=== PATIENT | female | born 1970 | race Caucasian/White ===

== ENCOUNTER 2018-05-09 16:10 | Emergency (ER) | payer BC, SELFPAY ==
[2018-05-09 16:10] VITALS: BP 143/93; PULSE 106; RESP 18; TEMP 36.2; O2SAT 100; BMI 33.3
[2018-05-09 17:30] VITALS: BP 143/93; PULSE 106; RESP 18; TEMP 36.2; O2SAT 96
[2018-05-09 17:54] LABS: Absolute Lymphocyte Count 3.21 X10^3/ul (0.83-4.51); Absolute Neutrophil Count 9.9 X10^3/uL (2.0-7.7); Basophil# 0.03 X10^3/uL; Basophil% 0.2 % (0-1); Eosinophil# 0.01 X10^3/uL; Eosinophils% 0.1 % (0-5); Hemoglobin 14.9 g/dl (12.0-15.0); Lymphocyte # 3.21 X10^3/ul (4.0); Lymphocyte % 22.4 % (19-41); Mean Corp Hgb Conc 33.1 g/gl (32-36); Mean Corpuscular Hgb 29.7 pg (27.0-32.0); Mean Corpuscular Volume 89.8 fL (81-99); Mean Platelet Vol. 10.4 fl (6.2-12.0); Monocyte# 1.14 X10^3/uL; POSITIVE COUNT NO; POSITIVE DIFFERENTIAL NO; POSITIVE MORPHOLOGY NO; Platelet Count 276 K/mm3 (150-450); RBC Distribution Width CV 12.6 % (11.6-14.6); RBC Distribution Width SD 40.8 fl (35.1-43.9); Red Blood Count 5.01 M/mm3 (4.2-5.4); White Blood Count 14.3 K/mm3 (4.4-11.0)
[2018-05-09] MEDS: 0.9% Normal Saline 1,000 ML 1000 ML IV (17:54)
[2018-05-09 18:04] LABS: Anion Gap 10 (5-15); BUN 13 mg/dL (7-18); BUN/Creat Ratio 13.3 RATIO (10-20); Calcium,Total 9.5 mg/dL (8.5-10.1); Chloride 99 mmol/L (98-107); Creatinine, Serum 0.98 mg/dL (0.55-1.02); EST Glomerular Filtration Rate 65 mL/min (>60); Est Glom Filt Rate - Afr Amer 78 mL/min (>60); Estimated Creatinine Clearance 69.75 ml/min; Glucose 388 mg/dL (74-106); Sodium Level 135 mmol/L (136-145)
[2018-05-09 18:15] LABS: Mucous, Urine 0 SEEN /hpf (<or=2+); Red Blood Cells-Urine 0 SEEN /hpf (0-5); White Blood Cells 0 SEEN /hpf (0-5)
[2018-05-09 18:17] LABS: Color, Urine Yellow (Yellow); Glucose, Dipstick 1000 mg/dl (Normal); Ketone-Dipstick Negative (Negative); Leukocyte Esterase-Dipstick Negative /ul (Negative); Nitrite-Dipstick Negative (Negative); Occult Blood-Urine Negative /ul (Negative); Protein-Dipstick Negative (Negative); Urine Bilirubin Dipstick Negative (Negative); Urine Clarity Clear (Clear); Urine Urobilinogen Normal (Normal); Urine pH 6.5 (5.0 - 8.0)
--- NOTE | 2018-05-09 18:32 | ED.VISSUMM ---
- ER Visit Summary Date of Service: 05/09/18 Chief Complaint: Elevated blood sugar History of Present Illness: The patient is a 47 F who presents with elevated blood sugar that became worse today. Patient was recently started on prednisone and Zithromax for bronchitis. Patient states her blood sugars at home were in the 600s. Patient states she called her phd intern who referred her to the emergency department. Patient admits to some polyuria and polydipsia. Patient denies any fevers or chills. Patient admits to some blurred vision. Physical Examination: Vital signs are stable. Patient is afebrile. Patient is in no acute distress. Oral mucosa is pink and moist. Neck is supple. Trachea is midline. There is no JVD noted. Heart was regular rate and rhythm. Lungs are clear and equal bilateral. Abdomen is soft. Bowel sounds are normal. There is no tenderness. There is no guarding noted. Skin is warm dry. Cranial nerves II through XII are intact. There are no focal motor or sensory deficits noted. The remaining physical exam is within normal limits. Test Results: Blood sugar here was elevated at 388. CBC was normal. Urinalysis was normal except for glucose in the urine. Ketones were negative. Emergency Department Course and Treatment: Patient was given IV fluids here. Patient was given a dose of Humalog here. Patient's blood sugar improved to 317. Patient was instructed to follow-up with her primary care physician in 2-3 days. Patient understood and was agreeable with the plan. All questions were answered. Disposition: Discharge home Impression: Hyperglycemia This note was generated with [employer] dictation software. It may contain incorrect words, spelling, and punctuation that were not noted in review of the chart prior to signing ED Disposition - Plan for ED Patient: Disposition: Home or Assisted Living Diagnosis: Hyperglycemia Instructions: ED Hyperglycemia Diabetic Referrals: Timmy Li MD [Primary Care Provider] -
--- NOTE | 2018-05-09 18:35 | ED.DCSUM_ITS ---
- ER Visit Summary Date of Service: 05/09/18 Chief Complaint: Elevated blood sugar History of Present Illness: The patient is a 47 F who presents with elevated blood sugar that became worse today. Patient was recently started on prednisone and Zithromax for bronchitis. Patient states her blood sugars at home were in the 600s. 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 Patient admits to some polyuria and polydipsia. Patient denies any fevers or chills. Patient admits to some blurred vision. Physical Examination: Vital signs are stable. Patient is afebrile. Patient is in no acute distress. Oral mucosa is pink and moist. Neck is supple. Trachea is midline. There is no JVD noted. Heart was regular rate and rhythm. Lungs are clear and equal bilateral. Abdomen is soft. Bowel sounds are normal. There is no tenderness. There is no guarding noted. Skin is warm dry. Cranial nerves II through XII are intact. There are no focal motor or sensory deficits noted. The remaining physical exam is within normal limits. Test Results: Blood sugar here was elevated at 388. CBC was normal. Urinalysis was normal except for glucose in the urine. Ketones were negative. Emergency Department Course and Treatment: Patient was given IV fluids here. Patient was given a dose of Humalog here. Patient's blood sugar improved to 317. Patient was instructed to follow-up with her primary care physician in 2-3 days. Patient understood and was agreeable with the plan. All questions were answered. Disposition: Discharge home Impression: Hyperglycemia This note was generated with [employer] dictation software. It may contain incorrect words, spelling, and punctuation that were not noted in review of the chart pr ior to signing ED Disposition - Plan for ED Patient: Disposition: Home or Assisted Living Diagnosis: Hyperglycemia Instructions: ED Hyperglycemia Diabetic Referrals: Timmy Li MD [Primary Care Provider] -
[2018-05-09 18:38] VITALS: TEMP 36.2; O2SAT 99
[2018-05-09 18:39] LABS: Bacteria RARE /hpf (None Seen); Squamous Epithelial Cells - UA 0-5 SEEN /hpf (5-10)
[2018-05-09] MEDS: Insulin Lispro 100 UNIT/ML INSULN.PEN 10 UNIT SC (18:44)
[2018-05-09 19:36] LABS: Bedside Glucose 314 mg/dL (70-110)
[2018-05-09 19:52] VITALS: RESP 18
== END 2018-05-09 20:06 | disposition home or self-care (01) ==
PROVIDERS: Emergency Provider Emergency Medicine; Family Provider Family Medicine; PCP Family Medicine
DX: E11.65 Type 2 diabetes mellitus with hyperglycemia (principal); I10 Essential (primary) hypertension; Z79.4 Long term (current) use of insulin; Z79.899 Other long term (current) drug therapy
CPT/HCPCS: 80048; 81001; 82009; 82962; 85025; 96360; 99283; J7030

== ENCOUNTER 2020-01-06 11:08 | Observation (INO) | payer BC, SELFPAY ==
[2020-01-06] VITALS (9 sets, daily range): BP systolic 113–181; BP diastolic 58–103; PULSE 69–90; RESP 12–19; TEMP 36.4–36.7; O2SAT 96–100; BMI 34.7; BMI 34.5; BMI 34.6
--- NOTE | 2020-01-06 11:11 | EKG12_ITS ---
Test Reason : Blood Pressure : / mmHG Vent. Rate : 083 BPM Atrial Rate : 083 BPM P-R Int : 132 ms QRS Dur : 072 ms QT Int : 362 ms P-R-T Axes : -25 032 043 degrees QTc Int : 425 ms Normal sinus rhythm Normal ECG Confirmed by KATHERINE GONZALEZ, SHUBHAM ([id number]), non linear editor RENATE VELOZ ([id number]) on 01/12/2020 11:48:08 AM Referred By: BRIANA Confirmed By:SHUBHAM MURPHY MD
[2020-01-06 11:35] LABS: Absolute Lymphocyte Count 3.13 X10^3/uL (0.83-4.51); Absolute Neutrophil Count 8.1 X10^3/uL (2.0-7.7); Basophil# 0.06 X10^3/uL; Basophil% 0.5 % (0-1); Eosinophil# 0.09 X10^3/uL; Eosinophils% 0.7 % (0-5); Hematocrit 44.8 % (37-47); Hemoglobin 14.9 g/dL (12.0-15.0); Lymphocyte # 3.13 X10^3/ul (4.0); Lymphocyte % 25.5 % (19-41); Mean Corp Hgb Conc 33.3 g/dL (32-36); Mean Corpuscular Hgb 30.1 pg (27.0-32.0); Mean Corpuscular Volume 90.5 fL (81-99); Mean Platelet Vol. 10.2 fl (6.2-12.0); Monocyte# 0.88 X10^3/uL; Monocyte% 7.2 % (0-10); NRBC Flagged by Analyzer 0 % (0-5); Neutrophil # 8.08 X10^3/uL (2.7-7.7); Neutrophil % 65.7 % (47-70); Platelet Count 298 K/mm3 (150-450); RBC Distribution Width CV 12.7 % (11.6-14.6); RBC Distribution Width SD 41.6 fl (35.1-43.9); Red Blood Count 4.95 M/mm3 (4.2-5.4); White Blood Count 12.3 K/mm3 (4.4-11.0)
--- NOTE | 2020-01-06 11:40 | RAD_ITS ---
STUDY: X-RAY CHEST REASON FOR EXAM: Female, 49 years old. CHEST PAIN SINCE YESTERDAY. TINGLING DOWN LEFT ARM WITH HEAVYNESS IN CHEST. TECHNIQUE: Single AP portable view of the chest. COMPARISON: 06/04/2014 FINDINGS: The lungs are clear and expanded. There is no demonstrated pleural abnormality. Normal size heart. Normal mediastinum and priyanka. Normal visualized pulmonary arteries. Normal visualized aortic arch and descending thoracic aorta. Normal visualized thoracic spine. Normal visualized ribs, clavicles, and shoulders. There is no demonstrated abnormality of the visualized soft tissue structures of the upper abdomen. RAD/Chest 1 View (Portable) IMPRESSION: Normal x-ray examination of the chest. Electronically Signed: Matt Stahl MD at 11:55 EDT Tel , Service support ,
--- NOTE | 2020-01-06 11:45 | ED.VIS.GEN ---
History of Present Illness Chief Complaint: Chest Pain Informant: Patient Narrative: 49-year-old female presenting with chest pain which is intermittent and feels like pressure. She says it comes and goes for a few minutes at a time. She has radiation into her left arm. She has associated dyspepsia as well. The episodes had been intermittent all day yesterday. Patient states she was supposed to come to the ER yesterday but did not. Today due to continuing episodes she presents for evaluation. Patient states she has a past medical history of hyperlipidemia, diabetes, hypertension. She denies cardiac history. Last stress test was 5 years ago. Patient does admit to history of provoked DVT after surgeries. She has no unprovoked DVTs. - Past Medical History (1) GERD (gastroesophageal reflux disease) Status: Chronic (2) Diabetes mellitus type 2 in obese Status: Chronic Comment: Pt currently using MDI. Discussed importance of notifying this office and [employer] with any/all pump issues. Will continue on injections at this time. Provided with a sliding scale of 1 for 15 points or 3 for 50 points. Counseled to decrease brekafast insulin with egg meal to 25 units to avoid low. Begin use of sliding scale as needed. Past Medical History - Allergies and Home Meds Allergies/Adverse Reactions: Allergies etodolac Allergy (Severe, Verified 01/06/20 11:08) Unknown lisinopril Allergy (Verified 01/06/20 11:08) Shortness of breath COUGH FEELS CANNOT BREATHE Past Medical History: - - Diabetes, hypertension, hyperlipidemia GERD, anxiety Surgical History: - - Hysterectomy cholecystectomy 2 left knee surgeries 2 left ankle surgery Lives: Spouse/ Significant Other Smoking Status: Never smoker Alcohol: None Drugs: None - Family History Paternal Family History: Family History (Last Reviewed 03/28/17 @ 13:00 by Kym Gao) Mother Asthma Diabetes Heart disease Hypertension High cholesterol Ovarian cancer Daughter Asthma Grandfather Cancer Grandmother Cancer Family History: Reports: No pertinent history Maternal Family History: Family History (Last Reviewed 03/28/17 @ 13:00 by Kym Gao) Mother Asthma Diabetes Heart disease Hypertension High cholesterol Ovarian cancer Daughter Asthma Grandfather Cancer Grandmother Cancer Family History: Reports: Cancer, Heart Disease Review of Systems General: Denies: Chills, Fever, Sweats Eyes: Denies: Visual changes - bilaterally, Diplopia ENT: Denies: Rhinorrhea, Sore throat Cardiovascular: Reports: Chest pain. Denies: Palpitations Respiratory: Denies: Dyspnea, Cough Gastrointestinal: Reports: Nausea, - - Dyspepsia Genitourinary: Denies: Dysuria, Hematuria Musculoskeletal: Denies: Back pain, Extremity Pain Skin: Denies: Rash, Wounds Neurological: Denies: Headache, Weakness, Numbness Physical Exam Vital Signs/Narrative: Vital Signs Temp Pulse Resp BP Pulse Ox 01/06/20 11:09 97.5 F L 90 16 181/58 H 100 Inital Vital Signs reviewed: Yes General: Obese, No Acute Distress Head: Normocephalic, Atraumatic Eyes: Perrl, EOMI ENT: Moist mucous membranes, No rhinorrhea Cardiovascular: Regular rate, Regular rhythm Respiratory: No distress, CTA bilaterally Abdomen: Soft, Nontender Extremities: Nontender, No edema Skin: Normal color, No rash. Negative for: Diaphoresis Neurological: Alert, Oriented x3, Cranial nerves II-XII grossly intact Psychological: Normal affect, Normal Mood Diagnostic/Tx/Re-eval Clinical Impression(s) from Imaging Studies Chest X-Ray 01/06/20 11:40 IMPRESSION: Normal x-ray examination of the chest. Electronically Signed: Matt Stahl MD at 11:55 EDT Tel , Service support , Chest CTA 01/06/20 12:15 IMPRESSION: Normal CTA chest examination, without a demonstrated pulmonary embolism or arterial dissection. Electronically Signed: Matt Stahl MD at 13:05 EDT Tel , Service support , Laboratory Data 01/06/20 01/06/20 01/06/20 11:30 11:30 11:30 WBC 12.3 H RBC 4.95 Hgb 14.9 Hct 44.8 MCV 90.5 MCH 30.1 MCHC 33.3 RDW Std Deviation 41.6 RDW Coeff of Tina 12.7 Plt Count 298 MPV 10.2 Immature Gran % (Auto) 0.400 Neut % (Auto) 65.7 Lymph % (Auto) 25.5 [place] % (Auto) 7.2 Eos % (Auto) 0.7 Baso % (Auto) 0.5 Absolute Neuts (auto) 8.1 H Absolute Lymphs (auto) 3.13 Nucleated RBC % 0 Sodium 139 Potassium 4.3 Chloride 106 Carbon Dioxide 29.0 Anion Gap 4 L BUN 13 Creatinine 1.00 Estim Creat Clear Calc 64.41 Est GFR (MDRD) Af Amer 76 Est GFR (MDRD) Non-Af 63 BUN/Creatinine Ratio 13.0 Glucose 286 H Calcium 9.0 Magnesium 1.9 Troponin I < 0.015 - Rhythm Strip Rhythm Strip: Sinus Rhythm Rate: 83 - EKG Initial EKG Interpretation: Sinus Rhythm, No Acute Injury Pattern - Medical Decision Making 49-year-old female with history of diabetes, hypertension, hyperlipidemia presenting with chest pain which is intermittent and radiating down the left arm. She has not had a stress test in several years. Her EKG is sinus rhythm without signs of ischemia. Troponin is negative. Other lab work is unremarkable. Her pain did improve with nitroglycerin but she did require a dose of morphine after this. Patient is amenable to being admitted to the hospital for further work-up. Impression: 1. Chest pain ED Disposition - Plan for ED Patient: Disposition: Acute Care Hospital [facility]
[2020-01-06 11:52] LABS: Anion Gap 4 (5-15); BUN 13 mg/dL (7-18); Chloride 106 mmol/L (98-107); EST Glomerular Filtration Rate 63 mL/min (>60); Est Glom Filt Rate - Afr Amer 76 mL/min (>60); Estimated Creatinine Clearance 64.41 ml/min; Glucose 286 mg/dL (74-106); Potassium 4.3 mmol/L (3.5-5.1); Sodium Level 139 mmol/L (136-145)
--- NOTE | 2020-01-06 12:15 | CT_ITS ---
STUDY: CTA CHEST REASON FOR EXAM: Female, 49 years old. CHEST PAIN SINCE YESTERDAY WITH TINGLING DOWN LEFT ARM. RADIATION DOSAGE (If Supplied By Facility): CTDIvol = ( 13.84 ) mGy, DLP = ( 482.19 ) mGycm TECHNIQUE: The examination was performed with the intravenous administration of IV 100mL Isovue-370. Post-processing of the angiographic images was performed, with multiplanar reformation and 3D reconstruction. Individualized dose optimization techniques were used for this CT. COMPARISON: Chest x-ray earlier today FINDINGS: Normal enhancement of the main pulmonary artery and right and left pulmonary arteries. Normal enhancement of the bilateral peripheral pulmonary arteries. There is no demonstrated pulmonary embolism. Normal thoracic aorta and visualized great vessels. There is no demonstrated aortic dissection. Normal heart and pericardium. Normal mediastinum. Normal hilar regions. Normal visualized trachea and bronchi. The lungs are well expanded. Normal pulmonary parenchyma. Normal pleura. Normal chest wall structures. Normal osseous structures. Normal visualized upper abdomen. CT/CTA Chest W/WO Contrast IMPRESSION: Normal CTA chest examination, without a demonstrated pulmonary embolism or arterial dissection. Electronically Signed: Matt Stahl MD at 13:05 EDT Tel , Service support ,
[2020-01-06] MEDS: Aspirin 81 MG TAB.CHEW 324 MG PO (12:33)
[2020-01-06] MEDS: Nitroglycerin SL (ED/IMG/CATH) 0.4 MG TABLET SUBLINGUAL (12:35)
--- NOTE | 2020-01-06 13:14 | HP.PCM_ITS ---
Problem List (1) Chest pain Status: Acute Qualifiers: Chest pain type: unspecified Qualified Code(s): R07.9 - Chest pain, unspecified (2) HTN (hypertension) Status: Chronic Qualifiers: Hypertension type: essential hypertension Qualified Code(s): I10 - Essential (primary) hypertension (3) HLD (hyperlipidemia) Status: Chronic Qualifiers: Hyperlipidemia type: unspecified Qualified Code(s): E78.5 - Hyperlipidemia, unspecified (4) Obesity (BMI 30.0-34.9) Status: Chronic (5) Anxiety and depression Status: Chronic (6) Diabetes mellitus, type II Status: Chronic Qualifiers: Diabetes mellitus occupational health coordinator insulin use: with occupational health coordinator use Diabetes mellitus complication status: with other specified complication Qualified Code(s): E11.69 - Type 2 diabetes mellitus with other specified complication; Z79.4 - senior care (current) use of insulin (7) GERD (gastroesophageal reflux disease) Status: Chronic Qualifiers: Esophagitis presence: esophagitis presence not specified Qualified Code(s): K21.9 - Gastro-esophageal reflux disease without esophagitis History of Present Illness Date of Admission: 01/06/20 Chief Complaint: Chest pain The patient is a 49 y/o F w/ PMHx: Anxiety and Depression, IBS, GERD, HTN, HLD, Diabetes mellitus type II, Chronic bronchitis who presents to the [facility] ED on 01/06/20 with onset 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 She did contact her PCP and requested NG but was referred to the ED. Her employer also encouraged her to leave and go to the ED but the patient declined at that time per her report. Work-up in the ED included 97.5, heart rate 90, BP initially 181/58 with improvement to 141/91 without regimen, respiratory rate 16, on a percent on room air, CBC with WBC 12.3, hemoglobin 14.9, platelet 290 with left shift, BMP unremarkable aside glucose 26, troponin less than 0.015, EKG with sinus rhythm with no acute evidence of ischemia, chest x-ray with no acute cardiopulmonary findings, CTPA with no demonstrated PE or arterial dissection. Patient with noted cardiac catheterization several years prior and last stress testing per patient report 5 years prior. In the ED patient administered normal saline, Zofran, morphine, nitroglycerin and aspirin therapy. Past Medical History Past Medical History (Chronic Problems): Chronic Problems (Last Reviewed 03/28/17 @ 13:00 by Kym Gao) HTN (hypertension) (Chronic) HLD (hyperlipidemia) (Chronic) Obesity (BMI 30.0-34.9) (Chronic) Anxiety and depression (Chronic) Diabetes mellitus, type II (Chronic) Diabetes mellitus type 2 in obese (Chronic) Pt currently using MDI. Discussed importance of notifying this office and [employer] with any/all pump issues. Will continue on injections at this time. Provided with a sliding scale of 1 for 15 points or 3 for 50 points. Counseled to decrease brekafast insulin with egg meal to 25 units to avoid low. Begin use of sliding scale as needed. Anxiety (Chronic) GERD (gastroesophageal reflux disease) (Chronic) Medical History: Medical History (Last Reviewed 03/28/17 @ 13:00 by Kym Gao) Anxiety F41.9 Asthma J45.909 Back problem M53.9 Bone fracture T14.8XXA Chronic bronchitis J42 Diabetes type 2, uncontrolled E11.65 GERD (gastroesophageal reflux disease) K21.9 H/O transfusion of whole blood Z92.89 Headache R51 Hyperlipidemia E78.5 IBS (irritable bowel syndrome) K58.9 UTI (urinary tract infection) N39.0 h/o ankle surgery HTN (hypertension) I10 Allergies etodolac Allergy (Severe, Verified 01/06/20 11:08) Unknown lisinopril Allergy (Verified 01/06/20 11:08) Shortness of breath COUGH FEELS CANNOT BREATHE Home Medications: Ambulatory Orders Medication Instructions Recorded ALPRAZolam [Xanax] 0.5 mg PO TID PRN PRN 01/23/13 Esomeprazole Mag Trihydrate 40 mg PO DAILY 06/04/14 [Nexium] Losartan Potassium [Cozaar] 25 mg PO DAILY 06/04/14 Surgical History: Surgical History (Last Reviewed 03/28/17 @ 13:00 by Kym Gao) H/O arthroscopy of left knee Z98.890 H/O tubal ligation Z98.51 H/O: Z98.891 History of tonsillectomy Z98.890, Z90.89 Hx of cholecystectomy Z98.890, Z90.49 S/P total abdominal hysterectomy Z90.710 Surgical History: - - Hysterectomy, cholecystectomy, 2 left knee arthroscopic surgeries, 2 right ankle surgeries, 5-6 left ankle surgeries, T+A, L Breast Bx. 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 Paternal Family History: Family History (Last Reviewed 03/28/17 @ 13:00 by Kym Gao) Mother Asthma Diabetes Heart disease Hypertension High cholesterol Ovarian cancer Daughter Asthma Grandfather Cancer Grandmother Cancer History Items: Heart Disease - Patient with history of OR, HD. Review of Systems Constitutional: Reports: Anorexia, Weakness, Fatigue. Denies: Chills, Fever, Malaise, Weight Change HEENT: Denies: Head Aches, Sinus Congestion, Sinus Drainage Cardiovascular: Reports: Chest Pain, Chest Pressure, Heaviness. Denies: Chest Tightness, Light Headedness, Palpitations, Syncope Respiratory: Reports: Shortness of Breath. Denies: Cough, Shortness of breath at rest, Shortness of breath upon exertion, Sputum production Gastrointestinal: Reports: Nausea. Denies: Abdominal Pain, Vomiting Genitourinary: Denies: Dysuria Musculoskeletal: Reports: Foot Pain. Denies: Joint Pain, Joint Tenderness Skin: Denies: Rash, Wounds Neurological: Denies: Numbness, Tingling, Focal weakness Psychiatric: Reports: Anxiety, Depression. Denies: Homicidal Ideations, Suicidal Ideations Hematologic/ Lymphatic: Denies: Easy Bruising, Easy Bleeding VTE Information - Inpt Only VTE Present on Admission: No VTE Mechan Device Prophylaxis: SCD's VTE Pharm Prophylaxis ordered?: Yes Subjective: Patient seated upright in the ED bed, anxious, notes chest pain better after NG, . Objective: Physical Examination: General: awake, alert, oriented x 3 and cooperative, seated upright in the ED bed, anxious, notes CP improving, . Skin: normal color, turgor, no icterus, cyanosis. HEENT: AT/NC, EOMI, PERRLA, MMM, no carotid bruits or JVD noted. Lungs: CTA bilaterally, moderate effort, moderate decrease BL bases, no rales, ronchi or wheezing. Heart: Regular rate and rhythm; no gallop, rub audible. Abdomen: soft, obese, NTTP, ND, normal BS, no HSM. Extremities: no cyanosis, clubbing, or edema, visible hair bilateral lower ex tremities, palpable peripheral pulses upper and lower extremities. Neurological: patient awake, alert, oriented x 3; cognitive function intact; pupils equally reactive to light and accomodation; cranial nerves II-XII grossly normal, moving all 4 extremities, no focal deficits, strength mildly to moderately global decreased given acute presentation. Psychiatric: affect appears anxious regarding presentation otherwise normal, no acute evidence of depressive feelings. - Physical Exam Vitals/I&O's: Vital Signs Temp Pulse Resp BP Pulse Ox 97.5 F L 86 12 141/91 H 99 01/06/20 11:09 01/06/20 12:44 01/06/20 12:44 01/06/20 12:44 01/06/20 12:44 Oxygen Delivery Method Room Air Weight: 215 lb Body Mass Index (BMI) 34.7 Finger Stick Blood Glucose 314 Laboratory Results 01/06/20 11:30: WBC 12.3 H, RBC 4.95, Hgb 14.9, Hct 44.8, MCV 90.5, MCH 30.1, MCHC 33.3, RDW Std Deviation 41.6, RDW Coeff of Tina 12.7, Plt Count 298, MPV 10.2, Immature Gran % (Auto) 0.400, Neut % (Auto) 65.7, Lymph % (Auto) 25.5, [place] % (Auto) 7.2, Eos % (Auto) 0.7, Baso % (Auto) 0.5, Absolute Neuts (auto) 8.1 H, Absolute Lymphs (auto) 3.13, Nucleated RBC % 0 01/06/20 11:30: Sodium 139, Potassium 4.3, Chloride 106, Carbon Dioxide 29.0, Anion Gap 4 L, BUN 13, Creatinine 1.00, Estim Creat Clear Calc 64.41, Est GFR (MDRD) Af Amer 76, Est GFR (MDRD) Non-Af 63, BUN/Creatinine Ratio 13.0, Glucose 286 H, Calcium 9.0, Troponin I < 0.015 Current Medications Iopamidol (Contrast Allergy Safety Check) 0 ml IV X1 MACKENZIE Assessment/Plan All Active Problems (Last Reviewed 03/28/17 @ 13:00 by Kym Gao) Chest pain (Acute) Hyperglycemia (Acute) The patient is a 49 y/o F w/ PMHx: Anxiety and Depression, IBS, GERD, HTN, HLD, Diabetes mellitus type II, Chronic bronchitis who presents to the [facility] ED on 01/06/20 with onset chest pain noted to have occurred at work while active, described as a sharp stabbing and pressure at the same time with intermittent radiation to her LUE described as heaviness, rated at its worse 8-9/10 in severity with associated nausea without emesis, dyspnea and diaphoresis noted to be constant throughout the day and into day of current presentation. 1. Chest Pain: EKG in ED with sinus rhythm with no acute evidence of ischemia, CXR w/ no acute cardiopulmonary findings and follow-up CTPA with no evidence of PE or arterial dissection, initial trop less than 0.015. Will admit to PCU, place on a monitored bed to assure no acute myocardial infarction with serial cardiac enzymes and EKGs. Patient is able to perform exercise thus will proceed with AM nuclear stress test if repeat enzymes and EKGs remain stable. FLP in AM. Mag requested. ASA, NG, morphine. 2. Anxiety and depression: We will continue patient home Xanax regimen and Cymbalta. 3. Diabetes mellitus type II with neuropathy: Hold oral home regimen, continue home insulin regimen, ADA diet, accu checks w/ ISS, continue gabapentin. 4. Hypertension: Continue home regimen including losartan, if necessary may consider addition of additional oral regimen to maintain appropriate BP. 5. Hyperlipidemia: Continue home statin regimen. AM FLP. 6. Obesity: Weight loss and lifestyle changes encouraged. 7. GERD: Continue patient home PPI. 8. DVT prophylaxis: SCDs, Lovenox. OBSV E&M: 50712 Initial observation care L3
[2020-01-06] MEDS: Ondansetron 4 MG/2 ML Vial IM (13:22)
[2020-01-06] MEDS: Morphine 4 MG/ML Syringe IV (13:22)
--- NOTE | 2020-01-06 14:26 | EKG12_ITS ---
Test Reason : Blood Pressure : / mmHG Vent. Rate : 075 BPM Atrial Rate : 075 BPM P-R Int : 140 ms QRS Dur : 076 ms QT Int : 398 ms P-R-T Axes : 026 023 041 degrees QTc Int : 444 ms Normal sinus rhythm Normal ECG When compared with ECG of 06-JAN-2020 11:23, MANUAL COMPARISON REQUIRED, DATA IS UNCONFIRMED Confirmed by ELLIE GONZALEZ, SKIP ([id number]), newspaper photo editor RENATE VELOZ ([id number]) on 01/07/2020 1:11:15 P M Referred By: DRE Confirmed By:RICK ARGUETA MD
[2020-01-06 14:58] LABS: Magnesium 1.9 mg/dL (1.6-2.6)
[2020-01-06] MEDS: 0.9% Normal Saline 1,000 ML 100 ML IV (15:24)
[2020-01-06] MEDS: oxyCODONE 5 MG Tablet PO ×2 (15:52→21:18)
[2020-01-06 17:00] LABS: Bedside Glucose 96 mg/dL (70-110)
[2020-01-06] MEDS: Morphine 2 MG/ML Syringe IV (18:20)
[2020-01-06] MEDS: Atorvastatin Calcium 40 MG Tablet PO (21:18)
[2020-01-06] MEDS: Pregabalin 75 MG Capsule 150 MG PO (21:18)
[2020-01-07] VITALS (8 sets, daily range): BP systolic 100–120; BP diastolic 67–79; PULSE 64–91; RESP 11–16; TEMP 36.7–36.8; O2SAT 90–100
[2020-01-07 00:51] LABS: Bedside Glucose 176 mg/dL (70-110)
[2020-01-07] MEDS: 0.9% Normal Saline 1,000 ML 100 ML IV (01:30)
[2020-01-07] MEDS: Losartan Potassium 25 MG Tablet PO (05:35)
[2020-01-07] MEDS: Aspirin E.C. 81 MG Tablet PO (05:35)
[2020-01-07] MEDS: Morphine 2 MG/ML Syringe IV (05:46)
[2020-01-07] MEDS: 0.9% Saline Lock 10 ML Syringe IV ×2 (05:46→10:58)
--- NOTE | 2020-01-07 05:55 | EKG12_ITS ---
Test Reason : AM EKG Blood Pressure : / mmHG Vent. Rate : 068 BPM Atrial Rate : 068 BPM P-R Int : 128 ms QRS Dur : 074 ms QT Int : 408 ms P-R-T Axes : 013 039 055 degrees QTc Int : 433 ms Normal sinus rhythm Normal ECG When compared with ECG of 06-JAN-2020 15:44, MANUAL COMPARISON REQUIRED, DATA IS UNCONFIRMED Confirmed by ELLIE GONZALEZ, SKIP ([id number]), loan expeditor RENATE VELOZ ([id number]) on 01/07/2020 1:18:06 P M Referred By: JOSUE Confirmed By:RICK ARGUETA MD
[2020-01-07 06:28] LABS: Absolute Lymphocyte Count 4.18 X10^3/uL (0.83-4.51); Basophil# 0.06 X10^3/uL; Basophil% 0.6 % (0-1); Eosinophil# 0.14 X10^3/uL; Eosinophils% 1.4 % (0-5); Hematocrit 43.2 % (37-47); Hemoglobin 13.5 g/dL (12.0-15.0); Lymphocyte # 4.18 X10^3/ul (4.0); Lymphocyte % 41.2 % (19-41); Mean Corp Hgb Conc 31.3 g/dL (32-36); Mean Corpuscular Hgb 29.5 pg (27.0-32.0); Mean Corpuscular Volume 94.3 fL (81-99); Mean Platelet Vol. 10.1 fl (6.2-12.0); Monocyte# 0.73 X10^3/uL; Monocyte% 7.2 % (0-10); NRBC Flagged by Analyzer 0 % (0-5); Neutrophil # 5.01 X10^3/uL (2.7-7.7); Neutrophil % 49.3 % (47-70); Platelet Count 257 K/mm3 (150-450); RBC Distribution Width SD 44.3 fl (35.1-43.9); Red Blood Count 4.58 M/mm3 (4.2-5.4); White Blood Count 10.2 K/mm3 (4.4-11.0)
[2020-01-07 06:59] LABS: ALB/GLOB Ratio 0.8 RATIO (0.9-2.4); AST(SGOT) 23 U/L (15-37); Alanine Aminotransfer ALT/SGPT 34 U/L (13-56); Albumin, Serum 2.9 g/dL (3.2-5.0); Alkaline Phosphatase 108 U/L (45-117); Anion Gap 4 (5-15); BUN 11 mg/dL (7-18); BUN/Creat Ratio 13.3 RATIO (10-20); Calcium,Total 8.2 mg/dL (8.5-10.1); Chloride 108 mmol/L (98-107); Cholesterol 155 mg/dL (200); Creatinine, Serum 0.83 mg/dL (0.55-1.02); EST Glomerular Filtration Rate 78 mL/min (>60); Est Glom Filt Rate - Afr Amer 94 mL/min (>60); Globulin 3.5 g/dL (2.2-4.2); Glucose 82 mg/dL (74-106); High Density Lipoprotein 40 mg/dL; Potassium 4.3 mmol/L (3.5-5.1); Protein, Total 6.4 g/dL (6.4-8.2); Sodium Level 141 mmol/L (136-145); Triglycerides 144 mg/dL; Very Low Density Lipoprotein 29 mg/dL (5-40)
[2020-01-07 07:00] LABS: Bedside Glucose 100 mg/dL (70-110)
[2020-01-07 07:16] LABS: Hemoglobin A1c 7.8 % (3.8-5.6)
[2020-01-07] MEDS: oxyCODONE 5 MG Tablet PO (10:58)
[2020-01-07] MEDS: Pregabalin 75 MG Capsule 150 MG PO (10:58)
[2020-01-07] MEDS: Pantoprazole Sodium 40 MG Tablet PO (10:58)
[2020-01-07] MEDS: proCHLORPERazine 10 MG/2 ML Vial 5 MG IV (10:58)
[2020-01-07] MEDS: Acetaminophen 325 MG Tablet 650 MG PO (10:59)
[2020-01-07 11:15] LABS: Bedside Glucose 151 mg/dL (70-110)
--- NOTE | 2020-01-07 12:53 | MRI_ITS ---
STUDY: MRI CERVICAL SPINE WITHOUT CONTRAST REASON FOR EXAM: Female, 49 years old. radiculopathy, chest pain, left hand numbness TECHNIQUE: Standardized fat and water weighted pulse sequences were obtained in the sagittal and axial planes. COMPARISON: None FINDINGS: Normal foramen magnum and brainstem-cervical cord junction. Normal craniovertebral junction. Normal anterior atlantoaxial articulation. Normal odontoid process. Normal cervical lordosis. Normal vertebral bodies and posterior osseous elements. C2-3: Normal endplates. Normal disc height, signal and morphology. Normal central canal and intervertebral neural foramina. C3-4: Normal endplates. Normal disc height, signal and morphology. Normal central canal and intervertebral neural foramina. C4-5: Normal endplates. Normal disc height, signal and morphology. Normal central canal and intervertebral neural foramina. C5-6: Normal endplates. Normal disc height, signal and morphology. Normal central canal and intervertebral neural foramina. C6-7: Normal endplates. Normal disc height, signal and morphology. Normal central canal and intervertebral neural foramina. C7-T1: Normal endplates. Normal disc height, signal and morphology. Normal central canal and intervertebral neural foramina. Normal cervical cord. Normal visualized soft tissue structures. MRI/Spine Cervical (Routine) IMPRESSION: Normal unenhanced MR examination of the cervical spine. Electronically Signed: Andreas Paniagua MD at 16:20 EDT , Service support ,
--- NOTE | 2020-01-07 16:10 | STRESSREP_ITS ---
Stress Test Report Date: 01/07/2020 Procedure: Pharmacologic stress nuclear imaging study Indications: Chest pain Consent: Per the patient Procedure: The patient underwent pharmacologic (Regadenoson) evaluation with a peak heart rate of 113 beats per minute (65%predicted maximal heart rate) and a peak blood pressure of 136/80 mmHg. The baseline ECG demonstrated normal sinus rhythm. EKG during lexiscan infusion revealed no significant ST changes. EKG post infusion revealed no significant ischemic changes [There were no cardiac dysrhythmias pretest, during pharmacologic infusion, or recovery]. Patient had chest heaviness with Lexiscan infusion which is likely a nonspecific response. The examination was discontinued secondary to completion of protocol. Impression: 1. Lexiscan stress test test is negative for Lexiscan infusion induced EKG changes of ischemia. 2. Lexiscan stress test test is positive for Lexiscan infusion induced chest heaviness which is likely nonspecific response. 3. Results of the nuclear portion of the test is as below Myocardial perfusion imaging study: Technique: The patient was injected with 14 millicuries of technetium 99m Cardiolite and subsequently rest SPECT Cardiolite nuclear imaging was obtained in the horizontal long, vertical long, and short axis views. The patient underwent pha rmacologic (Regadenoson) evaluation. Please see above for details. The patient was injected with 45 millicuries of technetium 99m Cardiolite and subsequently stress SPECT Cardiolite nuclear imaging was obtained in the horizontal long, vertical long, and short axis views. A gated Cardiolite study at peak stress was obtained. Interpretation: Rest and stress SPECT Cardiolite nuclear imaging status post realignment, normalization, and attenuation correction demonstrate mildly decreased radioisotope uptake in the inferior wall prior to attenuation correction on both the rest and stress images. After attenuation correction there is normal overall myocardial radioisotope uptake. These findings are suggestive of diaphragmatic attenuation artifact. There is no evidence of significant ische jaydon or infarction. Gated images reveal no significant regional wall motion abnormalities. The reported LVEF is 69%. Impression: 1. There is no evidence of significant ischemia or infarction. 2. Estimated ejection fraction is 69%. This note was generated with [employer] software. It may contain incorrect words, spelling, and punctuation that were not noted in checking the note before signing.
--- NOTE | 2020-01-07 16:20 | DCINST_ITS ---
- Discharge Diagnoses Current Active Problems: Current Active and Chronic Problems (Last Reviewed 03/28/17 @ 13:00 by Kym Gao) Chest pain (Acute) HTN (hypertension) (Chronic) HLD (hyperlipidemia) (Chronic) Obesity (BMI 30.0-34.9) (Chronic) Anxiety and depression (Chronic) Diabetes mellitus, type II (Chronic) Diabetes mellitus type 2 in obese (Chronic) Pt currently using MDI. Discussed importance of notifying this office and [employer] with any/all pump issues. Will continue on injections at this time. Provided with a sliding scale of 1 for 15 points or 3 for 50 points. Counseled to decrease brekafast insulin with egg meal to 25 units to avoid low. Begin use of sliding scale as needed. GERD (gastroesophageal reflux disease) (Chronic) You will use the following diet at home:: No restrictions Your food should be the consistency of: Regular Discharge Activity: Return to Normal Activity Allergies/Adverse Reactions: Allergies etodolac Allergy (Severe, Verified 01/06/20 11:08) Unknown lisinopril Allergy (Verified 01/06/20 11:08) Shortness of breath COUGH FEELS CANNOT BREATHE Medications to take at Discharge ALPRAZolam [Xanax] 0.5 mg PO TID PRN PRN 01/23/13 Esomeprazole Mag Trihydrate [Nexium] 40 mg PO DAILY 06/04/14 Losartan Potassium [Cozaar] 25 mg PO DAILY 06/04/14 Atorvastatin Calcium [Lipitor] 40 mg PO QHS 01/06/20 Beta-Carotene [Beta Carotene] 25,000 unit PO BID 01/06/20 Calcium Magnesium Zinc 1 tab PO BID 01/06/20 Cholecalciferol (Vitamin D3) [Vitamin D3] 2,000 unit PO BID 01/06/20 Dulaglutide [Trulicity] 0.75 mg SQ COOK 01/06/20 Echinacea Root/Goldenseal Root [Echinac-Goldenseal 250-250 mg] 1 cap PO BID 01/06/20 Glucos Sul 2Kcl/MSM/Chond/C/Mn [Glucosamine Chondroitin Cap] 1 cap PO BID 01/06/20 Insulin Lispro [Humalog] 0 units OTHER DAILY 01/06/20 Milk Thistle Seed Extract [Milk Thistle] 200 mg PO BID 01/06/20 Pregabalin [Lyrica] 150 mg PO BID 01/06/20 Josep's Wort 300 mg PO BID 01/06/20 proMETHazine tablet [Phenergan tablet] 25 mg PO Q6H PRN PRN 01/06/20 Primary Care Physician: Timmy Li MD [Primary Care Provider] - Please follow up with your Primary Care Physician in: in 1 week Test Results: Test results from this visit will be discussed in further detail at your follow- up appointment, if applicable. Please Follow Up With: Luis Enrique Schmitz DO Proposed Discharge Date: 01/07/20
--- NOTE | 2020-01-07 16:26 | PCM.DC.SUM ---
Discharge Date and Diagnosis - Problem List Patient Problems: Active and Suspected Problems (Last Reviewed 03/28/17 @ 13:00 by Kym Gao) Chest pain (Acute) Date of Admission: 01/06/20 Date of Discharge: 01/07/20 - Primary Discharge Diagnosis Acute Problems: Active Problems (Last Reviewed 03/28/17 @ 13:00 by Kym Gao) Chest pain (Acute) - Secondary Discharge Diagnosis Chronic Problems: Chronic Problems (Last Reviewed 03/28/17 @ 13:00 by Kym Gao) HTN (hypertension) (Chronic) HLD (hyperlipidemia) (Chronic) Obesity (BMI 30.0-34.9) (Chronic) Anxiety and depression (Chronic) Diabetes mellitus, type II (Chronic) Diabetes mellitus type 2 in obese (Chronic) Pt currently using MDI. Discussed importance of notifying this office and [employer] with any/all pump issues. Will continue on injections at this time. Provided with a sliding scale of 1 for 15 points or 3 for 50 points. Counseled to decrease brekafast insulin with egg meal to 25 units to avoid low. Begin use of sliding scale as needed. Anxiety (Chronic) GERD (gastroesophageal reflux disease) (Chronic) Hospital Course and Treatment Imaging Results: Summary of Care Provided: The patient is a 49 year old F past medical history significant for diabetes mellitus type 2, obesity with BMI of 34 hypertension dyslipidemia depression with anxiety who presented with chest pain. Patient was placed on a monitored bed ME was ruled out with serial cardiac enzymes. Subsequently underwent a nuclear stress test which was negative for stress-induced ischemia. It was felt patient symptoms were consistent with cervical radiculopathy and MRI obtained was however unremarkable. Suspicion for cervical radiculopathy remains high. A follow-up appointment was set up with spinal surgeon Dr. Luis Enrique Schmitz for patient on 01/09/2020. Patient was discharged home in stable condition. Patient Problems: Active and Suspected Problems (Last Reviewed 03/28/17 @ 13:00 by Kym Gao) Chest pain (Acute) - Physical Exam Vitals/I&O's: Vital Signs Temp Pulse Resp BP Pulse Ox 98.0 F 66 16 120/72 100 01/07/20 11:00 01/07/20 15:24 01/07/20 11:00 01/07/20 11:00 01/07/20 11:00 Oxygen Delivery Method Room Air Weight: 97.114 kg Body Mass Index (BMI) 34.5 Finger Stick Blood Glucose 314 Intake and Output for Last 24 Hours 01/05/20 01/06/20 01/07/20 23:59 23:59 23:59 Intake Total 1410 / 1410 2224 Output Total 0 / 0 0 / 0 Balance 1410 / 1410 2224 General: Alert HEENT: Atraumatic Neck: Supple Psych/Mental Status: Flat Affect Laboratory Results 01/06/20 16:48: POC Glucose 96 01/06/20 18:10: Troponin I < 0.015 01/06/20 21:16: POC Glucose 176 H 01/07/20 05:50: WBC 10.2, RBC 4.58, Hgb 13.5, Hct 43.2, MCV 94.3, MCH 29.5, MCHC 31.3 L D, RDW Std Deviation 44.3 H, RDW Coeff of Tina 13.0, Plt Count 257, MPV 10.1, Immature Gran % (Auto) 0.300, Neut % (Auto) 49.3, Lymph % (Auto) 41.2 H, Casey % (Auto) 7.2, Eos % (Auto) 1.4, Baso % (Auto) 0.6, Absolute Neuts (auto) 5.0, Absolute Lymphs (auto) 4.18, Nucleated RBC % 0 01/07/20 05:50: Sodium 141, Potassium 4.3, Chloride 108 H, Carbon Dioxide 29.0, Anion Gap 4 L, BUN 11, Creatinine 0.83, Estim Creat Clear Calc 77.60, Est GFR (MDRD) Af Amer 94, Est GFR (MDRD) Non-Af 78, BUN/Creatinine Ratio 13.3, Glucose 82, Calcium 8.2 L, Total Bilirubin 0.30, AST 23, ALT 34, Alkaline Phosphatase 108, Total Protein 6.4, Albumin 2.9 L, Globulin 3.5, Albumin/Globulin Ratio 0.8 L, Triglycerides 144, Cholesterol 155, LDL Cholesterol 86, VLDL Cholesterol 29, HDL Cholesterol 40 01/07/20 05:50: Hemoglobin A1c 7.8 H 01/07/20 06:52: POC Glucose 100 01/07/20 11:08: POC Glucose 151 H Current Medications Acetaminophen (Acetaminophen 325 Mg Tablet) 650 mg PO Q6H PRN PRN PRN Reason: Pain Score 1-10/Temp > 100.7 F Last Admin: 01/07/20 10:59 Dose: 650 mg Documented by: Al Hydroxide/Mg Hydroxide (Mag Hydrox/Al Hydrox/Simeth 30 Ml Udc) 30 ml PO Q6H PRN PRN PRN Reason: Gastric Burning Albuterol Sulfate (Albuterol 2.5 Mg/3 Ml Vial.Neb.) 2.5 mg INHALATION Q2H PRN PRN PRN Reason: Dyspnea, wheezing Alprazolam (Alprazolam 0.5 Mg Tablet) 0.5 mg PO TID PRN PRN PRN Reason: ANXIETY Aspirin (Aspirin E.C. 81 Mg Tablet) 81 mg PO DAILY@0800 [facility] Last Admin: 01/07/20 05:35 Dose: 81 mg Documented by: Atorvastatin Calcium (Atorvastatin Calcium 40 Mg Tablet) 40 mg PO QHS [facility] Last Admin: 01/06/20 21:18 Dose: 40 mg Documented by: Enoxaparin Sodium (Enoxaparin 40 Mg/0.4 Ml Syringe) 40 mg SC DAILY [facility] Guaifenesin (Guaifenesin 10 Ml Udc (200mg/10ml)) 20 ml PO Q4H PRN PRN PRN Reason: COUGH Iopamidol (Contrast Allergy Safety Check) 0 ml IV X1 [facility] Last Admin: 01/07/20 14:02 Dose: Not Given Documented by: Losartan Potassium (Losartan Potassium 25 Mg Tablet) 25 mg PO DAILY [facility] Last Admin: 01/07/20 05:35 Dose: 25 mg Documented by: Magnesium Hydroxide (Magnesium Hydroxide 30 Ml Udc) 30 ml PO DAILY PRN PRN PRN Reason: Constipation Melatonin (Melatonin 3 Mg Tablet) 3 mg PO QHS PRN PRN PRN Reason: INSOMNIA Morphine Sulfate (Morphine 2 Mg/Ml Syringe) 2 mg IV Q3H PRN PRN PRN Reason: Pain Score 6-10 Last Admin: 01/07/20 05:46 Dose: 2 mg Documented by: Nitroglycerin (Nitroglycerin (Inpatient Use) 0.4 Mg Tab.Subl) 0.4 mg SUBLINGUAL Q5M PRN PRN Reason: CARDIAC/CHEST PAIN Ondansetron HCl (Ondansetron 4 Mg/2 Ml Vial) 4 mg IV Q8H PRN PRN PRN Reason: NAUSEA/VOMITING Oxycodone HCl (Oxycodone 5 Mg Tablet) 5 mg PO Q4H PRN PRN PRN Reason: Pain Score 4-5 Last Admin: 01/07/20 10:58 Dose: 5 mg Documented by: Pantoprazole Sodium (Pantoprazole Sodium 40 Mg Tablet) 40 mg PO DAILY [facility] Last Admin: 01/07/20 10:58 Dose: 40 mg Documented by: Pregabalin (Pregabalin 75 Mg Capsule) 150 mg PO BID [facility] Last Admin: 01/07/20 10:58 Dose: 150 mg Documented by: Prochlorperazine Edisylate (Prochlorperazine 10 Mg/2 Ml Vial) 5 mg IV Q4H PRN PRN PRN Reason: Breakthrough Nausea/Vomiting Last Admin: 01/07/20 10:58 Dose: 5 mg Documented by: Psyllium Hydrophilic Mucilloid (Psyllium 1 Packet) 1 packet PO DAILY PRN PRN PRN Reason: Constipation Senna/Docusate Sodium (Senna/Docusate Sodium 1 Tablet) 2 tablet PO BID PRN PRN PRN Reason: Constipation Sodium Chloride (0.9% Saline Lock 10 Ml Syringe) 10 - 40 ml IV UD PRN PRN Reason: SALINE FLUSH Last Admin: 01/07/20 10:58 Dose: 10 ml Documented by: Throat Lozenges (Benzocaine/Menthol 1 Lozenge) 1 lozenge MUCOUS MEM Q2H PRN PRN PRN Reason: SORE THROAT Discharge Diet: 1800 Calorie Control Diet Discharge Activity: Return to Normal Activity Home Medications: Medications to take at Discharge ALPRAZolam [Xanax] 0.5 mg PO TID PRN PRN 01/23/13 Esomeprazole Mag Trihydrate [Nexium] 40 mg PO DAILY 06/04/14 Losartan Potassium [Cozaar] 25 mg PO DAILY 06/04/14 Atorvastatin Calcium [Lipitor] 40 mg PO QHS 01/06/20 Beta-Carotene [Beta Carotene] 25,000 unit PO BID 01/06/20 Calcium Magnesium Zinc 1 tab PO BID 01/06/20 Cholecalciferol (Vitamin D3) [Vitamin D3] 2,000 unit PO BID 01/06/20 Dulaglutide [Trulicity] 0.75 mg SQ COOK 01/06/20 Echinacea Root/Goldenseal Root [Echinac-Goldenseal 250-250 mg] 1 cap PO BID 01/06/20 Glucos Sul 2Kcl/MSM/Chond/C/Mn [Glucosamine Chondroitin Cap] 1 cap PO BID 01/06/20 Insulin Lispro [Humalog] 0 units OTHER DAILY 01/06/20 Milk Thistle Seed Extract [Milk Thistle] 200 mg PO BID 01/06/20 Pregabalin [Lyrica] 150 mg PO BID 01/06/20 Nelsonia's Wort 300 mg PO BID 01/06/20 proMETHazine tablet [Phenergan tablet] 25 mg PO Q6H PRN PRN 01/06/20 Primary Care Physician: Timmy Li MD [Primary Care Provider] - Please follow up with your Primary Care Physician in: in 1 week Please Follow Up With: Luis Enrique Schmitz DO Disposition: Home Minutes spent on discharge:: 35 Patient Condition:: Stable Medical Necessity - Tobacco Use Smoking Status: Never smoker Tobacco Use: Non-smoker Meaningful Use Info Meaningful Use Diagnoses (Choose all that apply): None applicable OBSV E&M: 49811 Observation care discharge
== END 2020-01-07 16:26 | disposition home or self-care (01) ==
LOC: ED 13:03 → PCU 13:58
PROVIDERS: Admitting Provider Family Medicine; Emergency Provider Student in an Organized Health Care Education/Training Program; PCP Family Medicine; Visit Provider Internal Medicine
DX: R07.89 Other chest pain (principal); E78.5 Hyperlipidemia, unspecified; E66.9 Obesity, unspecified; I10 Essential (primary) hypertension; F32.9 Major depressive disorder, single episode, unspecified; F41.9 Anxiety disorder, unspecified; K21.9 Gastro-esophageal reflux disease without esophagitis; E11.40 Type 2 diabetes mellitus with diabetic neuropathy, unspecified; Z79.899 Other long term (current) drug therapy; Z79.4 Long term (current) use of insulin; Z86.718 Personal history of other venous thrombosis and embolism; K58.9 Irritable bowel syndrome, unspecified; J45.909 Unspecified asthma, uncomplicated; Z68.34 Body mass index [BMI] 34.0-34.9, adult
CPT/HCPCS: 36415; 71045; 71275; 72141; 78452; 80048; 80053; 80061; 82962; 83036; 83735; 84484; 85025; 93005; 93017; 96361; 96372; 96374; 96375; 96376; 97802; 99218; 99251; 99285; A9500; J7030; J7040; Q9967; A4216; G0378; G0463; J2405; J2785

== ENCOUNTER → 2020-02-07 08:36 | Outpatient (CLI) | payer BC, SELFPAY ==
[2020-01-09 13:48] VITALS: BMI 33.9
--- NOTE | 2020-02-07 08:38 | MRI_ITS ---
STUDY: MRI LEFT SHOULDER REASON FOR EXAM: Female, 49 years old. Left shoulder burning/stabbing pain, limited r.o.m. TECHNIQUE: Standardized fat and water weighted pulse sequences were obtained in all 3 orthogonal planes. COMPARISON: X-ray January 09, 2020 FINDINGS: There is supraspinatus tendinosis with tendon thickening, but without a demonstrated tendon tear. Normal infraspinatus tendon. Normal subscapularis tendon. Normal teres minor tendon. Normal supraspinatus muscle. Normal infraspinatus muscle. Normal subscapularis muscle. Normal teres minor muscle. Normal glenohumeral articulation. There is small joint effusion. Normal humeral head and visualized proximal humerus. Normal biceps labral complex. Normal intracapsular long biceps tendon. Tear of the superior labrum adjacent to the biceps anchor, series 4 image 11/05. Normal capsulo- ligamentous complex. Normal rotator interval. There is mild osteoarthritis of the acromioclavicular articulation. There is a Type II morphology (curved) acromion, with a neutral orientation. There is no subacromial-subdeltoid bursal fluid. Normal visualized coracohumeral and coracoacromial ligaments. Normal quadrilateral space. Normal axillary space. Normal deltoid muscle. Normal trapezius muscle. MRI/Upper Ext Joint Only(Routine) IMPRESSION: No rotator cuff tear. Tendinosis of the supraspinatus. SLAP lesion with tear of the superior labrum. Electronically Signed: Teddy Sorto MD at 15:17 EST , Service support ,
== END ==
PROVIDERS: PCP Family Medicine; Referring Provider Orthopaedic Surgery; Visit Provider Orthopaedic Surgery
DX: M25.512 Pain in left shoulder (principal)
CPT/HCPCS: 73221

== ENCOUNTER 2020-04-14 12:43 | Emergency (ER) | payer BC, SELFPAY ==
[2020-04-14 12:45] VITALS: BP 139/99; PULSE 103; RESP 20; TEMP 35.7; O2SAT 99; BMI 33.7
--- NOTE | 2020-04-14 12:52 | ED.VIS.GEN ---
History of Present Illness Chief Complaint: Abd Pain Informant: Patient Narrative: 49-year-old female presenting with left flank pain. She states she has had this bout a week. She was seen at [facility] and had blood work and imaging which was normal. Patient states that her pain is intermittent, sharp in nature, associated with nausea. Patient followed up with her PCP who told her if she continues to have pain to go to the emergency room. Patient denies any fever, chills. She denies urinary symptoms. She denies change in bowel habits. Past Medical History - Allergies and Home Meds Allergies/Adverse Reactions: Allergies etodolac Allergy (Severe, Verified 01/09/20 13:56) Unknown diclofenac [From Voltaren] Allergy (Verified 04/14/20 12:44) Nausea lisinopril Allergy (Verified 01/09/20 13:56) Shortness of breath COUGH FEELS CANNOT BREATHE Primary Care Physician: Timmy Li MD [Primary Care Provider] - Surgical History: - - Hysterectomy, cholecystectomy, 2 left knee arthroscopic surgeries, 2 right ankle surgeries, 5-6 left ankle surgeries, T+A, L Breast Bx. - Family History Maternal Family History: Family History (Last Reviewed 01/09/20 @ 14:13 by Sena Gamboa) Mother Asthma Diabetes Heart disease Hypertension High cholesterol Ovarian cancer Daughter Asthma Grandfather Cancer Grandmother Cancer Family History: Reports: Cancer, Heart Disease, - - Mother with history of CABG x 4, passed age 54. Paternal Family History: Family History (Last Reviewed 01/09/20 @ 14:13 by Sena Gamboa) Mother Asthma Diabetes Heart disease Hypertension High cholesterol Ovarian cancer Daughter Asthma Grandfather Cancer Grandmother Cancer Family History: Reports: Heart Disease - Patient with history of NE, HD. Physical Exam Vital Signs/Narrative: Vital Signs Temp Pulse Resp BP Pulse Ox 04/14/20 12:45 96.2 F L 103 H 20 H 139/99 H 99 Diagnostic/Tx/Re-eval Clinical Impression(s) from Imaging Studies Abdomen/Pelvis CT 04/14/20 14:01 IMPRESSION: No acute abnormality is seen. Electronically Signed: Lester Reddy MD at 14:24 EST , Service support , Laboratory Data 04/14/20 04/14/20 04/14/20 13:30 13:35 13:35 WBC 13.5 H RBC 5.16 Hgb 15.6 H Hct 47.4 H MCV 91.9 MCH 30.2 MCHC 32.9 RDW Std Deviation 40.8 RDW Coeff of Tina 12.1 Plt Count 328 MPV 10.1 Immature Gran % (Auto) 0.400 Neut % (Auto) 64.3 Lymph % (Auto) 27.7 [place] % (Auto) 6.7 Eos % (Auto) 0.5 Baso % (Auto) 0.4 Absolute Neuts (auto) 8.6 H Absolute Lymphs (auto) 3.72 Nucleated RBC % 0 Sodium 138 Potassium 3.5 Chloride 103 Carbon Dioxide 30.0 Anion Gap 5 BUN 12 Creatinine 1.00 Estim Creat Clear Calc 64.41 Est GFR (MDRD) Af Amer 76 Est GFR (MDRD) Non-Af 63 BUN/Creatinine Ratio 12.0 Glucose 219 H Calcium 9.2 Urine Color Yellow Urine Clarity Sl. Cloudy Urine pH 6.5 Ur Specific [place] 1.010 Urine Protein Negative Urine Glucose (UA) Normal Urine Ketones Negative Urine Occult Blood Negative Urine Nitrite Negative Urine Bilirubin Negative Urine Urobilinogen Normal Ur Leukocyte Esterase 25 H Urine RBC 0 SEEN Urine WBC 0-5 SEEN Ur Squamous Epith Cells 0-5 SEEN Urine Bacteria 1+ Urine Mucus 0 SEEN - Medical Decision Making I was able to review the patient's work-up on 04/12/2020 at [facility]. Patient had a slight leukocytosis at 13.3. Her hemoglobin is 15.4. Hematocrit 47.7. Platelets 289. CMP showed normal LFTs. Creatinine was 0.79 BUN 15, electrolytes were normal. Glucose 226. Urinalysis was negative for infection. Patient also had a troponin which was negative. T of the abdomen pelvis with IV contrast did not identify any acute abnormality. Today she is clearly complaining of left flank pain. Does not appear to be chest pain. I will check basic lab work and urinalysis. Basic lab work is unchanged from previous. She still has the same leukocytosis. Renal function and electrolytes are normal. Patient's urinalysis is negative. Given her presentation I believe she sounds active passed kidney stone. I will give her Percocet and Zofran for home. She is counseled to follow-up with her primary care physician if she continues to have pain. Impression: 1. Left flank pain 2. Leukocytosis ED Disposition - Plan for ED Patient: Disposition: Home or Assisted Living Instructions: ED Flank Pain, Uncertain Cause Referrals: Timmy Li MD [Primary Care Provider] -
[2020-04-14] MEDS: Ondansetron 4 MG/2 ML Vial IV (13:27)
[2020-04-14] MEDS: Morphine 4 MG/ML Syringe IV (13:27)
[2020-04-14 13:46] LABS: Absolute Lymphocyte Count 3.72 X10^3/uL (0.83-4.51); Absolute Neutrophil Count 8.6 X10^3/uL (2.0-7.7); Basophil# 0.06 X10^3/uL; Basophil% 0.4 % (0-1); Eosinophil# 0.07 X10^3/uL; Eosinophils% 0.5 % (0-5); Hematocrit 47.4 % (37-47); Hemoglobin 15.6 g/dL (12.0-15.0); Lymphocyte # 3.72 X10^3/ul (4.0); Lymphocyte % 27.7 % (19-41); Mean Corp Hgb Conc 32.9 g/dL (32-36); Mean Corpuscular Hgb 30.2 pg (27.0-32.0); Mean Corpuscular Volume 91.9 fL (81-99); Mean Platelet Vol. 10.1 fl (6.2-12.0); Monocyte% 6.7 % (0-10); NRBC Flagged by Analyzer 0 % (0-5); Neutrophil # 8.64 X10^3/uL (2.7-7.7); Neutrophil % 64.3 % (47-70); Platelet Count 328 K/mm3 (150-450); RBC Distribution Width CV 12.1 % (11.6-14.6); RBC Distribution Width SD 40.8 fl (35.1-43.9); Red Blood Count 5.16 M/mm3 (4.2-5.4); White Blood Count 13.5 K/mm3 (4.4-11.0)
[2020-04-14 14:00] LABS: Anion Gap 5 (5-15); BUN 12 mg/dL (7-18); Calcium,Total 9.2 mg/dL (8.5-10.1); Chloride 103 mmol/L (98-107); EST Glomerular Filtration Rate 63 mL/min (>60); Est Glom Filt Rate - Afr Amer 76 mL/min (>60); Estimated Creatinine Clearance 64.41 ml/min; Glucose 219 mg/dL (74-106); Potassium 3.5 mmol/L (3.5-5.1); Sodium Level 138 mmol/L (136-145)
--- NOTE | 2020-04-14 14:01 | CT_ITS ---
STUDY: CT ABDOMEN AND PELVIS WITHOUT CONTRAST REASON FOR EXAM: Female, 49 years old. LEFT SIDE ABD PAIN X 1 MONTH -- SURG-GB,HYST RADIATION DOSAGE (If Supplied By Facility): CTDIvol = ( 19.57 ) mGy, DLP = ( 1070.68 ) mGycm TECHNIQUE: Transaxial images were obtained from the dome of the diaphragm to the symphysis pubis without oral contrast, and without intravenous contrast. Sagittal and coronal images were reconstructed. Individualized dose optimization techniques were used for this CT. COMPARISON: Comparison is made with prior study dated 09/29/2010. FINDINGS: The visualized lung bases are unremarkable. The visualized portions of the heart are within normal limits. Normal liver. There are surgical clips in the gallbladder fossa consistent with a prior cholecystectomy. Normal spleen. Normal pancreas. Normal bilateral adrenal glands. Normal right kidney. Normal left kidney. Normal visualized stomach. Normal small intestine. There are scattered colonic diverticula consistent with diverticulosis. The appendix is visualized and appears normal. There is diffuse atherosclerotic calcification of the abdominal aorta, without a demonstrated aneurysm. Normal inferior vena cava. Normal retroperitoneum. Normal urinary bladder. There is absence of the uterus consistent with a prior hysterectomy. Normal abdominal wall. Normal osseous structures. CT/Abdomen/Pelvis without Cont IMPRESSION: No acute abnormality is seen. Electronically Signed: Lester Reddy MD at 14:24 EST , Service support ,
[2020-04-14 14:32] LABS: Mucous, Urine 0 SEEN /hpf (<or=2+); Red Blood Cells-Urine 0 SEEN /hpf (0-5)
[2020-04-14 14:34] LABS: Color, Urine Yellow (Yellow); Glucose, Dipstick Normal (Normal); Ketone-Dipstick Negative (Negative); Leukocyte Esterase-Dipstick 25 /ul (Negative); Nitrite-Dipstick Negative (Negative); Occult Blood-Urine Negative /ul (Negative); Protein-Dipstick Negative (Negative); Urine Bilirubin Dipstick Negative (Negative); Urine Clarity Sl. Cloudy (Clear); Urine Urobilinogen Normal (Normal); Urine pH 6.5 (5.0 - 8.0)
[2020-04-14 14:40] LABS: Bacteria 1+ /hpf (None Seen); Squamous Epithelial Cells - UA 0-5 SEEN /hpf (5-10); White Blood Cells 0-5 SEEN /hpf (0-5)
[2020-04-14 15:05] VITALS: BP 113/86; PULSE 85; RESP 16
--- NOTE | 2020-04-14 15:06 | ED.RN ---
IV DC'ED, CATHETER INTACT, SMALL GAUZE DRESSING PLACED. DISCHARGE INSTRUCTIONS GIVEN TO AND REVIEWED WITH PATIENT, PATIENT DENIES QUESTIONS OR CONCERNS AND VOICES UNDERSTANDING OF DISCHARGE INSTRUCTIONS. PT AMBULATES OUT OF ROOM WITHOUT DIFFICULTY.
== END 2020-04-14 15:06 | disposition home or self-care (01) ==
PROVIDERS: Emergency Provider Student in an Organized Health Care Education/Training Program; PCP Family Medicine
DX: R10.9 Unspecified abdominal pain (principal); D72.829 Elevated white blood cell count, unspecified; Z79.4 Long term (current) use of insulin
CPT/HCPCS: 74176; 80048; 81001; 85025; 96374; 96375; 99283; A4216; J2405

== ENCOUNTER 2021-03-06 17:03 | Emergency (ER) | payer BC, SELFPAY ==
[2021-03-06 17:03] VITALS: BP 166/110; PULSE 116; RESP 16; TEMP 36.3; O2SAT 100; BMI 32.9
[2021-03-06 17:17] VITALS: O2SAT 96
--- NOTE | 2021-03-06 17:18 | EKG12_ITS ---
Test Reason : SOB Blood Pressure : / mmHG Vent. Rate : 096 BPM Atrial Rate : 096 BPM P-R Int : 128 ms QRS Dur : 070 ms QT Int : 336 ms P-R-T Axes : 002 021 044 degrees QTc Int : 424 ms Normal sinus rhythm Normal ECG Confirmed by KIRILL GONZALEZ, CAROL ([id number]), senior editor RENATE VELOZ [id number]) on 03/07/2021 11:33:30 AM Referred By: RU Confirmed By:CAROL ROY MD
--- NOTE | 2021-03-06 17:19 | ED.VIS.DYS ---
HPI History of Present Illness Chief Complaint: Shortness of Breath Detail of Chief Complaint: Shortness of breath Informant: patient Narrative Narrative: Patient presents to the emergency department chief complaint of shortness of breath that started yesterday. Patient states that she has had Covid-like symptoms for the last 5 or 6 days. 2 days ago she took a home Covid test and was positive. She denies any sick contacts. Patient states she started feeling short of breath with activity today. She does have a pulse oximeter at home and its been running between 93 to 97% on room air. She denies any chest pain. She does have a cough that is productive at times of some yellow sputum. Patient has not been vaccinated against COVID-19. [facility] Medical History (Updated 03/06/21 @ 20:[address] Renae Henley, ) Anxiety Asthma Back problem Bone fracture Chronic bronchitis Diabetes type 2, uncontrolled Diabetic neuropathy GERD (gastroesophageal reflux disease) h/o ankle surgery H/O hematoma rectal H/O transfusion of whole blood Headache HTN (hypertension) Hyperlipidemia IBS (irritable bowel syndrome) UTI (urinary tract infection) Home Medications alprazolam 0.5 mg PO TID PRN PRN 01/23/13 [History Last Taken 01/04/20] esomeprazole magnesium 40 mg PO DAILY 06/04/14 [History Last Taken 01/06/20] losartan 25 mg PO DAILY 06/04/14 [History Last Taken 01/06/20] Calcium Magnesium Zinc 1 tab PO BID 01/06/20 [History Last Taken 01/06/20] atorvastatin 80 mg PO QHS 01/06/20 [History Last Taken 01/05/20] beta carotene 25,000 unit PO BID 01/06/20 [History Last Taken 01/06/20] cholecalciferol (vitamin D3) 2,000 unit PO BID 01/06/20 [History Last Taken 01/06/20] echinacea-kearney seal roots 1 cap PO BID 01/06/20 [History Last Taken 01/06/20] insulin lispro 0 units OTHER DAILY 01/06/20 [History Last Taken 01/06/20] ondansetron 4 mg PO Q8H PRN PRN 04/14/20 [History Last Taken Unknown] levofloxacin 750 mg PO DAILY 4 Days #4 tab 03/06/21 [Rx Last Taken Unknown] Allergy/AdvReac Type Severity Reaction Status Date / Time etodolac Allergy Severe Unknown Verified 03/06/21 17:05 diclofenac [From Voltaren] Allergy Nausea Verified 03/06/21 17:05 lisinopril Allergy Shortness Verified 03/06/21 17:05 of breath Family History Mother Asthma Diabetes Heart disease Hypertension High cholesterol Ovarian cancer Daughter Asthma Grandfather Cancer Grandmother Cancer Surgical History H/O arthroscopy of left knee H/O tubal ligation H/O: History of tonsillectomy Hx of cholecystectomy S/P total abdominal hysterectomy Social History (Updated 02/25/20 @ 16:[address] Dallas Ramirez, ) household members: spouse Smoking Status: Never smoker second hand exposure: Yes alcohol intake: never substance use type: does not use what type of physical activity do you participate in: none do you feel safe at home: Yes ROS ROS ED ROS Narrative Loss of taste and smell Constitutional Constitutional ED: Reports systems reviewed and no addt'l complaints, except as documented; Denies body ache(s), change in weight or chills Eyes Eyes: Denies acute decrease in peripheral vision, change in vision, double vision or loss of vision ENT ENT ED: Reports none; Denies ear pain, lip swelling, loss taste/smell, neck pain, otalgia or sore throat Cardiovascular Cardiovascular: Reports none; Denies abdominal pain, chest pain with activity, leg edema, lightheadedness, palpitations, rapid heart rate or syncope Respiratory/Chest Respiratory/Chest: Reports none, cough and dyspnea; Denies change in mental status, dry cough, hemoptysis, shortness of breath at rest or shortness of breath with exertion Gastrointestinal Gastrointestinal: Reports none; Denies abdominal pain, change in stool character, diarrhea, hematemesis, hematochezia, melena, rectal bleeding or vomiting Genitourinary Genitourinary ED: Reports none; Denies abdominal discomfort, anuria, dysuria, genital pain or polyuria Musculoskeletal Musculoskeletal: Reports none and myalgias; Denies arthralgias, back pain, difficulty walking, extremity pain or muscle weakness Integumentary Reports none; Denies abscess or rash Neurologic Neurologic: Reports none and headache(s); Denies abnormal gait, confusion, focal weakness, frequent falls, loss of vision, numbness, paresthesias, radicular pain, vertigo or weakness Psychiatric Psychiatric: Reports systems reviewed and no addt'l complaints, except as documented and none; Denies behavioral changes, confusion, difficulty concentrating, hallucinations, suicidal ideation, tactile hallucinations or visual hallucinations Endocrine Endocrinology: Denies none, cold intolerance, excessive sweating, fatigue or heat intolerance Hematologic/Lymphatic Hematologic/Lymphatic: Reports none; Denies anemia, easy bleeding or easy bruising Allergic/Immunologic Allergic/Immunologic ED: Denies as per HPI, none, lip swelling, mouth swelling, throat swelling, tongue swelling or hives EXAM Physical Exam Const Vital Signs: 03/06/21 17:03 03/06/21 17:17 03/06/21 18:47 Temperature 97.4 F L Temperature Source Temporal Pulse Rate 116 H Respiratory Rate 16 18 Respiratory Effort Short of Breath Respiratory Depth Normal Respiratory Pattern Normal Blood Pressure 166/110 H 131/84 H Blood Pressure Mean 128 99 Pulse Ox 100 97 Oxygen Delivery Method Room Air Room Air Room Air Positive well nourished and well developed General Appearance ED: well developed and NAD HEENT Reports TM's clear and moist mucous membranes normocephalic and atraumatic; Negative for trauma or tenderness Tympanic Membrane ED: Yes TM's clear Eyes PERRL and EOMs intact bilaterally General Eye ED: Negative for pale conjunctiva or scleral icterus Neck no lymphadenopathy, supple and no JVD General: Negative for tenderness Chest Wall inspection of chest normal and palpation of chest normal Chest: Negative for tenderness Resp normal respiratory effort and clear to auscultation bilaterally Effort and Inspection: Negative for respiratory distress or pain with movement Auscultation: Negative for rhonchi, wheezes or diminished lung sounds Cardio regular rate, regular rhythm, S1 normal heart sound, S2 normal heart sound and no murmurs Peripheral Pulses: pulses 2+ throughout GI normal to inspection, nondistended, normoactive bowel sounds, soft to palpation, non-tender, non-distended and no masses Back/Spine no CVA tenderness and no thoracic nor lumbar tenderness Extremity normal to inspection General Extremety ED: Negative for edema General Extremity: Negative for edema Neuro oriented x3, CN's II-XII intact bilaterally, no sensory deficits noted and gait normal Sensorium / Orientation: awake, alert, oriented to person, oriented to place and oriented to time Motor Exam: strength 5/5 throughout and strength abnormal Psych mental status grossly normal Skin no rashes or lesions noted and no wounds MDM MDM MDM Narrative Medical decision making narrative: IV line established on arrival. Patient did test positive for COVID-19. Her D-dimer was elevated and therefore CTA was obtained which was negative for PE but did showed a focal right upper lobe infiltrate groundglass like consistent with Covid. Patient is not hypoxic and feel she can be treated as an outpatient. She would like to be referred for monoclonal antibodies which I will refer her for. Patient advised to return if increasing shortness of breath or condition should worsen anyway. I will cover her with Levaquin for 5 days given that this pneumonia. Somewhat focal and only in the right lung which is a little atypical in and unusual with Covid. Lab Data Attestation: I reviewed the patient's lab results. Labs: Laboratory Results - last 24 hr 03/06/21 03/06/21 03/06/21 18:10 18:10 18:10 WBC 5.7 RBC 5.12 Hgb 15.1 H Hct 44.9 MCV 87.7 MCH 29.5 MCHC 33.6 RDW Std Deviation 38.7 RDW Coeff of Tina 12.1 Plt Count 195 MPV 10.5 Immature Gran % (Auto) 0.300 Neut % (Auto) 51.2 Lymph % (Auto) 39.7 [place] % (Auto) 8.0 Eos % (Auto) 0.5 Baso % (Auto) 0.3 Absolute Neuts (auto) 2.9 Absolute Lymphs (auto) 2.28 Nucleated RBC % 0 D-Dimer Quant (PE/DVT) 0.80 H* Sodium 136 Potassium 4.5 Chloride 105 Carbon Dioxide 22.0 Anion Gap 9 BUN 16 Creatinine 0.86 Estim Creat Clear Calc 74.08 Est GFR (MDRD) Af Amer 90 Est GFR (MDRD) Non-Af 75 BUN/Creatinine Ratio 18.6 Glucose 393 H Calcium 9.0 Radiography Diagnostic Testing: Clinical Impression(s) from Imaging Studies Chest X-Ray 03/06/21 17:48 IMPRESSION: Findings compatible with right upper lung pneumonia in the appropriate clinical setting. Follow-up chest x-ray to resolution is recommended. Electronically Signed: Emanuel Alford MD at 18:22 EST Tel , Service support , Chest CTA 03/06/21 18:44 IMPRESSION: Multifocal groundglass opacities in right upper lobe airspace disease. Findings are consistent with covid 19. Electronically Signed: Andreas Paniagua MD at 19:55 EST , Service support , 1 view chest x-ray obtained interpreted by myself as right upper lobe infiltrate. Radiology in agreement. EKG Initial EKG: Attestation: I personally reviewed and interpreted this EKG as follows: Comments: Sinus rhythm with a ventricular rate of 96 bpm with no acute ST segment changes Discharge Plan Triage Chief Complaint: Shortness of Breath ED Provider: Renae Henley Dx/Rx/DC Orders Clinical Impression: COVID-19 Instructions: ED - COVID Monoclonal AB Infusion ..., Caring for Someone Who Has COVID-19 Prescriptions: New levofloxacin 750 mg tablet 750 mg PO DAILY 4 Days Qty: 4 RF: 0 No Action alprazolam 0.5 MG tablet 0.5 mg PO TID PRN PRN (Reason: Anxiety) RF: 0 esomeprazole magnesium 40 MG capsule 40 mg PO DAILY RF: 0 losartan 25 MG tablet 25 mg PO DAILY RF: 0 atorvastatin 40 MG tablet 80 mg PO QHS RF: 0 beta carotene 25,000 UNIT capsule 25,000 unit PO BID RF: 0 insulin lispro 100 UNIT/ML solution 0 units OTHER DAILY RF: 0 cholecalciferol (vitamin D3) 50 MCG capsule 2,000 unit PO BID RF: 0 echinacea-kearney seal roots 1 EACH capsule 1 cap PO BID RF: 0 Calcium Magnesium Zinc 1 tab PO BID RF: 0 ondansetron 4 MG tablet 4 mg PO Q8H PRN PRN (Reason: n/v) RF: 0 Other Ambulatory Orders: COVID Outpatient Monoclonal Antibody Referral (Routine) Timeframe: 1 Day Facility: [facility] - Location: [facility] Ordered By: Dr. Renae Henley Primary Care Provider: Timmy Li Referrals: Timmy Li MD [Primary Care Provider] - 5-7 Days Disposition Disposition: Home, Self Care
[2021-03-06] MEDS: 0.9% Normal Saline 1,000 ML 150 ML IV (17:34)
--- NOTE | 2021-03-06 17:48 | RAD_ITS ---
STUDY: X-RAY CHEST REASON FOR EXAM: Female, 50 years old. dyspnea TECHNIQUE: 1 view COMPARISON: 01/06/2020 FINDINGS: Cardiomediastinal silhouette is unremarkable. Costophrenic angles are sharp. Right upper lung airspace opacity noted, compatible with pneumonia in the appropriate clinical setting. The trachea is midline. There is no pneumothorax. The bones are grossly intact. RAD/Chest 1 View (Portable) IMPRESSION: Findings compatible with right upper lung pneumonia in the appropriate clinical setting. Follow-up chest x-ray to resolution is recommended. Electronically Signed: Emanuel Alford MD at 18:22 EST Tel , Service support ,
[2021-03-06 18:18] LABS: Absolute Lymphocyte Count 2.28 X10^3/uL (0.83-4.51); Absolute Neutrophil Count 2.9 X10^3/uL (2.0-7.7); Basophil# 0.02 X10^3/uL; Basophil% 0.3 % (0-1); Eosinophil# 0.03 X10^3/uL; Eosinophils% 0.5 % (0-5); Hematocrit 44.9 % (37-47); Hemoglobin 15.1 g/dL (12.0-15.0); Lymphocyte # 2.28 X10^3/ul (0.83-4.51); Lymphocyte % 39.7 % (19-41); Mean Corp Hgb Conc 33.6 g/dL (32-36); Mean Corpuscular Hgb 29.5 pg (27.0-32.0); Mean Corpuscular Volume 87.7 fL (81-99); Mean Platelet Vol. 10.5 fl (6.2-12.0); Monocyte# 0.46 X10^3/uL; NRBC Flagged by Analyzer 0 % (0-5); Neutrophil # 2.93 X10^3/uL (2.7-7.7); Neutrophil % 51.2 % (47-70); Platelet Count 195 K/mm3 (150-450); RBC Distribution Width CV 12.1 % (11.6-14.6); RBC Distribution Width SD 38.7 fl (35.1-43.9); Red Blood Count 5.12 M/mm3 (4.2-5.4); White Blood Count 5.7 K/mm3 (4.4-11.0)
[2021-03-06 18:32] LABS: Anion Gap 9 (5-15); BUN 16 mg/dL (7-18); BUN/Creat Ratio 18.6 RATIO (10-20); Chloride 105 mmol/L (98-107); Creatinine, Serum 0.86 mg/dL (0.55-1.02); EST Glomerular Filtration Rate 75 mL/min (>60); Est Glom Filt Rate - Afr Amer 90 mL/min (>60); Estimated Creatinine Clearance 74.08 ml/min; Glucose 393 mg/dL (74-106); Potassium 4.5 mmol/L (3.5-5.1); Sodium Level 136 mmol/L (136-145)
--- NOTE | 2021-03-06 18:44 | CT_ITS ---
STUDY: CTA CHEST REASON FOR EXAM: Female, 50 years old. elevated d-dimer, covid RADIATION DOSAGE (If Supplied By Facility): CTDIvol = ( 12.63 ) mGy, DLP = ( 479.88 ) mGycm TECHNIQUE: The examination was performed with the intravenous administration of IV 100mL [id number]-[id number]. Post-processing of the angiographic images was performed, with multiplanar reformation and 3D reconstruction. Individualized dose optimization techniques were used for this CT. COMPARISON: Chest x-ray 03/06/[address] chest 01/06/2020 FINDINGS: Normal enhancement of the main pulmonary artery and right and left pulmonary arteries. Normal enhancement of the bilateral peripheral pulmonary arteries. There is no demonstrated pulmonary embolism. Normal thoracic aorta and visualized great vessels. There is no demonstrated aortic dissection. Normal heart and pericardium. Normal mediastinum. Normal hilar regions. Normal visualized trachea and bronchi. Multifocal bilateral groundglass opacities. Right upper lobe airspace disease. Normal pulmonary parenchyma. Normal pleura. Normal chest wall structures. Normal osseous structures. Normal visualized upper abdomen. CT/CTA Chest W/WO Contrast IMPRESSION: Multifocal groundglass opacities in right upper lobe airspace disease. Findings are consistent with covid 19. Electronically Signed: Andreas Paniagua MD at 19:55 EST , Service support ,
[2021-03-06 18:47] VITALS: BP 131/84; RESP 18; O2SAT 97
[2021-03-06] MEDS: levoFLOXacin 750 MG Tablet PO (20:42)
[2021-03-06 20:47] VITALS: BP 135/78; PULSE 81; RESP 16; O2SAT 97
== END 2021-03-06 20:47 | disposition home or self-care (01) ==
PROVIDERS: Emergency Provider Emergency Medicine; PCP Family Medicine
DX: U07.1 COVID-19 (principal); E11.40 Type 2 diabetes mellitus with diabetic neuropathy, unspecified; E78.5 Hyperlipidemia, unspecified; K21.9 Gastro-esophageal reflux disease without esophagitis; I10 Essential (primary) hypertension; F41.9 Anxiety disorder, unspecified; Z79.899 Other long term (current) drug therapy; Z79.4 Long term (current) use of insulin
CPT/HCPCS: 36415; 71045; 71275; 80048; 85025; 85379; 87040; 87426; 93005; 99285; Q9967; A4216